=== PATIENT | male | born 1965 | race American Indian/Alaskan Native ===

== ENCOUNTER 2021-09-03 00:51 | Emergency (ER) | payer OTHER ==
[2021-09-03 01:40] VITALS: BP 152/97
--- NOTE | 2021-09-03 02:44 | XRay Report ---
RIGHT HAND 3 VIEW(S) INDICATION / CLINICAL INFORMATION: INJURY COMPARISON: None available. FINDINGS: BONES / JOINT(S): Acute mildly displaced spiral type fracture involving the proximal and mid ring fin raimundo metacarpal. No significant arthritis. SOFT TISSUES: No significant abnormality. ADDITIONAL FINDINGS: None. IMPRESSION: 1. Acute spiral fracture ring finger metacarpal. Signer Name: Rancho Marin MD Signed: 09/03/2021 2:39 AM Workstation Name: [id number]
--- NOTE | 2021-09-03 13:28 | Emergency Department Report ---
Upper Extremity - [facility] Chief Complaint: Extremity Injury, Upper Stated Complaint: FALL/RT HAND PAIN Time Seen by Provider: 09/03/21 13:24 Upper Extremity: Right Hand Occurred When: 1 Day Mechanism: Fall, Hyperextension Severity: moderate Symptoms: Yes Pain with Movement, Yes Limited Range of Movement, No Deformity, No Numbness, No Weakness, No Swelling, No Bruising/Ecchymosis, No Laceration or Abrasion Other History: This is a 56-year-old male that presents to the emergency room with pain to right fourth and fifth digits. Patient states he fell landing with hand stretched out and felt his hand hyperextend when he sat on it to break fall. Patient states he fell last night in a [employer] course while at work. Patient states he cannot bend his fourth and fifth fingers and reports pain as 8 out of 10 with movement. He denies swelling, bruising, numbness, tingling, or weakness. ED Review of Systems ROS: Stated complaint: FALL/RT HAND PAIN Other details as noted in HPI Constitutional: denies: chills, fever Respiratory: denies: cough, shortness of breath, wheezing Cardiovascular: denies: chest pain, palpitations Musculoskeletal: arthralgia (right hand pain). denies: back pain, joint swelling Skin: denies: rash, lesions Neurological: denies: headache, weakness, paresthesias Psychiatric: denies: anxiety, depression ED Past Medical Hx - Medications Home Medications: Home Medications Medication Instructions Recorded Confirmed Last Taken Type traMADoL [Ultram 50 MG tab] 50 mg PO Q6HR PRN #12 tablet 09/03/21 Unknown Rx Upper Extremity Exam - Exam General: Vital signs noted. No distress. Alert and acting appropriately. Head and Torso: No HEENT Abnormality, No Neck Tenderness, No Chest/Lungs Abnormality, No Abdominal Tenderness, No Back Tenderness Shoulder Exam: Yes Normal Range of Motion in Shoulder, No Shoulder Tenderness, No Clavicle Tenderness, No Shoulder Deformity, No AC Joint Tenderness Arm Exam: No Arm/Humerus Tenderness, No Arm Deformity Elbow: No Elbow Tenderness, No Normal Range of Motion in Elbow, No Elbow Deformity Forearm: No Forearm Tenderness, No Forearm Deformity, No Pain with Pronation, No Pain with Supination Wrist: Yes Normal ROM in Wrist, No Wrist Tenderness, No Wrist Deformity, No Snuffbox Tenderness, No Pain with Axial Thumb Compression Hand: Yes Digit Tenderness (Right proximal fourth metacarpal TTP, sensation intact, no erythema, no swelling, limited active or passive ROM 2/2 pain), No Hand Tenderness, No Hand Deformity, No Normal ROM in Digit(s), No Digit(s) Deformity, No Tendon Dysfunction CMS Exam: No Broken Skin, No Normal Distal Pulses, No Normal Capillary Refill, No Normal Distal Sensation ED Course Vital Signs 09/03/21 00:59 Temperature 98.3 F Pulse Rate 89 Respiratory 18 Rate Blood Pressure 152/97 O2 Sat by Pulse 97 Oximetry ED Medical Decision Making - Radiology Data Radiology results: report reviewed [address] [place] [id number] XRay Report Signed Patient: KAELA SHEEHAN MR#: [id number] : 1965 Acct:[id number] Age/Sex: 56 / M ADM Date: 09/03/21 Loc: ED Attending Dr: Ordering Physician: EDWIGE LEOS MD Date of Service: 09/03/21 Procedure(s): XR hand 3+V RT Accession Number(s): [id number] cc: ED MD DERIC Fluoro Time In Minutes: RIGHT HAND 3 VIEW(S) INDICATION / CLINICAL INFORMATION: INJURY COMPARISON: None available. FINDINGS: BONES / JOINT(S): Acute mildly displaced spiral type fracture involving the proximal and mid ring finger metacarpal. No significant arthritis. SOFT TISSUES: No significant abnormality. ADDITIONAL FINDINGS: None. IMPRESSION: 1. Acute spiral fracture ring finger metacarpal. Signer Name: Rancho Marin MD Signed: 09/03/2021 2:39 AM Workstation Name: [id number] Transcribed By: TL Dictated By: Rancho Marin MD Electronically Authenticated By: Rancho Marin MD Signed Date/Time: 09/03/21 0239 - Medical Decision Making This is a 56-year-old male that presents with right hand pain suspicious for a fracture. Given history, exam, and mechanism. No e/o compartment syndrome, septic arthritis, other acute fracture. Range of motion is limited with passive or active flexion. X-ray of left hand obtained with an acute spiral fracture 4th metacarpal. A Velcro hand splint was applied. Referral to orthopedics for continued care. Patient given education on signs symptoms of compartment syndrome. Start analgesics. Patient discharged home stable. Critical care attestation.: If time is entered above; I have spent that time in minutes in the direct care of this critically ill patient, excluding procedure time. ED Disposition Clinical Impression: Fracture of finger, middle or proximal phalanx Disposition: HOME / SELF CARE / HOMELESS Is pt being admited?: No Condition: Stable Instructions: Finger Fracture, Adult, [id number], Cast or Splint Care, Adult, [id number] Prescriptions: traMADoL [Ultram 50 MG tab] 50 mg PO Q6HR PRN #12 tablet PRN Reason: Pain Referrals: RAJINDER GARIBAY MD [Staff Physician] - 3-5 Days [facility] [Provider Group] - 3-5 Days [facility] [Provider Group] - 3-5 Days Forms: Work/School Release Form(ED) Time of Disposition: 13:36
== END 2021-09-03 14:00 | disposition home or self-care (01) ==
LOC: ED 00:51
DX: S62.613A Displaced fracture of proximal phalanx of left middle finger, initial encounter for closed fracture (principal); W19.XXXA Unspecified fall, initial encounter; Y93.89 Activity, other specified; Y92.89 Other specified places as the place of occurrence of the external cause; Y99.8 Other external cause status
CPT/HCPCS: 99283

== ENCOUNTER 2021-11-27 13:29 | Emergency (ER) | payer OTHER ==
[2021-11-27 14:21] VITALS: BP 160/103
--- NOTE | 2021-11-27 15:23 | Emergency Department Report ---
ED Medical Clearance HPI - General Chief complaint: Extremity Injury, Upper Stated complaint: ARM PAIN Time Seen by Provider: 11/27/21 14:25 Source: patient Mode of arrival: Ambulatory - History of Present Illness Initial comments: 56-year-old F [place] male presents with the emergency department complaint of history of right wrist pain/injury secondary to a fracture which is now resolved and seeking a work release. Reports no further trauma, no pain, no injury. No fever, chills, sweats. No nausea, no vomiting, no numbness, no tingling. 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 -: Gradual Place: home Alledged Intoxication: No Compliant with Home Medications: No Traumatic Symptoms: denies traumatic injury Associated Symptoms: denies: palpitations, diaphoresis, denies other symptoms, fever/chills, headaches, seizure, syncope, weakness Treatments Prior to Arrival: none Home medications: Previous Rx's Medication Instructions Recorded Last Taken Type traMADoL [Ultram 50 MG tab] 50 mg PO Q6HR PRN #12 tablet 09/03/21 Unknown Rx Allergies/Adverse reactions: Allergies Allergy/AdvReac Type Severity Reaction Status Date / Time No Known Allergies Allergy Verified 09/03/21 01:41 ED Review of Systems ROS: Stated complaint: ARM PAIN Other details as noted in HPI Comment: All other systems reviewed and negative ED Past Medical Hx - Past Medical History Previous Medical History?: No - Surgical History Hx Appendectomy: Yes - Medications Home Medications: Home Medications Medication Instructions Recorded Confirmed Last Taken Type traMADoL [Ultram 50 MG tab] 50 mg PO Q6HR PRN #12 tablet 09/03/21 Unknown Rx ED Physical Exam - General Limitations: No Limitations General appearance: alert, in no apparent distress - Head Head exam: Present: atraumatic, normocephalic - Eye Eye exam: Present: normal appearance, PERRL, EOMI Pupils: Present: normal accommodation - ENT ENT exam: Present: normal exam, normal orophraynx, mucous membranes moist, TM's normal bilaterally - Neck Neck exam: Present: normal inspection, full ROM - Respiratory Respiratory exam: Present: normal lung sounds bilaterally. Absent: respiratory distress, wheezes, rales, rhonchi - Cardiovascular Cardiovascular Exam: Present: regular rate, normal rhythm. Absent: systolic murmur, diastolic murmur, rubs, gallop - GI/Abdominal GI/Abdominal exam: Present: soft, normal bowel sounds - Rectal Rectal exam: Present: deferred - Extremities Exam Extremities exam: Present: normal inspection - Back Exam Back exam: Present: normal inspection - Neurological Exam Neurological exam: Present: alert, oriented X3 - Psychiatric Psychiatric exam: Present: normal affect, normal mood - Skin Skin exam: Present: warm, dry, intact, normal color. Absent: rash ED Course Vital Signs 11/27/21 14:14 Temperature 98.8 F Pulse Rate 65 Respiratory 18 Rate Blood Pressure 160/103 [Left] O2 Sat by Pulse 97 Oximetry ED Disposition Clinical Impression: General medical exam Disposition: HOME / SELF CARE / HOMELESS Is pt being admited?: No Does the pt Need Aspirin: No Condition: Stable Additional Instructions: Please follow-up with your primary care or orthopedic if you are seeking clearance to return to work Referrals: RAJINDER GARIBAY MD [Staff Physician] - 3-5 Days
== END 2021-11-27 15:40 | disposition home or self-care (01) ==
LOC: ED 13:29
DX: M25.531 Pain in right wrist (principal)
CPT/HCPCS: 99282